=== PATIENT | male | born 1970 | race Caucasian/White ===

== ENCOUNTER 2023-11-28 06:46 | Day surgery (SDC) | payer OTHER, SELFPAY ==
[2023-11-28 11:03] VITALS: BP 142/75
[2023-11-28 13:13] VITALS: BP 147/92
[2023-11-28 13:15] VITALS: BP 123/87
[2023-11-28 13:31] VITALS: BP 148/82
== END 2023-11-28 14:35 | disposition home or self-care (01) ==
LOC: SDS 06:46
PROVIDERS: ATTENDING PHYSICIAN Internal Medicine Gastroenterology
DX: Z12.11 Encounter for screening for malignant neoplasm of colon (principal); D12.0 Benign neoplasm of cecum; D12.2 Benign neoplasm of ascending colon; D12.3 Benign neoplasm of transverse colon; K63.5 Polyp of colon; K57.30 Diverticulosis of large intestine without perforation or abscess without bleeding; K64.0 First degree hemorrhoids; Z85.038 Personal history of other malignant neoplasm of large intestine; Z98.0 Intestinal bypass and anastomosis status
CPT/HCPCS: 45385; 88305